=== PATIENT | male | born 1965 | race American Indian/Alaskan Native ===

== ENCOUNTER 2022-06-05 17:06 | Emergency (ER) | payer SELFPAY ==
--- NOTE | 2022-06-05 17:41 | Emergency Department Report ---
ED General Adult HPI - General Chief complaint: Arrhythmia/Palpitations Stated complaint: SVT Time Seen by Provider: 06/05/22 17:39 Source: patient, family, EMS (Verbal report received from emergency medical services. EMS documentation not available at time of chart dictation ), RN notes reviewed Mode of arrival: Stretcher Limitations: No Limitations - History of Present Illness Initial comments: The patient was evaluated in the emergency department for symptoms described in the history of present illness. He/she was evaluated in the context of the global COVID-19 pandemic, which necessitated consideration that the patient might be at risk for infection with the virus that causes COVID-19. Institutional protocols and algorithms that pertain to the evaluation of patients at risk for COVID-19 are in a state of rapid change based on informatio n released by regulatory bodies including the CDC and federal and state organizations. These policies and algorithms were followed during the patient's care in the emergency department. Please note that these policies, procedures and recommendations changed on a rapid basis. This is a 56-year-old gentleman who is medically healthy and denies chronic medical conditions. He presents to the ER today with an EMS articulated complaint of possible SVT, which is terminated with adenosine in the field. The patient reports that he recently retired from [employer], and is now working nights, graveyard shift, with security. He reports poor sleep hygiene, and disrupted sleep-wake cycle, sometimes sleeping only 4 hours at a time. He reports that he stood up today, to go to the bathroom, after eating, and he felt a sensation of painless heart racing. He reports that they called 911. EMS reports to myself that the patient had a regular narrow complex tachycardia, suspicious for SVT. EMS gave the patient 6 mg of adenosine, in the field, which terminated the patient's symptoms. The patient is a little anxious about this event, but otherwise, feels like he is back to his baseline. He currently denies physical pain. He denies travel, surgery, immobilization, DVT and pulmonary embolism extractors. He denies recreational drug use. He occasionally consumes coffee, but otherwise denies illicit drug use or alcohol consumption. He endorses readiness for discharge at this time -: Sudden Severity scale (0 -10): 0 Consistency: now resolved Improves with: medication Worsens with: none Associated Symptoms: denies other symptoms - Related Data Allergies Allergy/AdvReac Type Severity Reaction Status Date / Time No Known Allergies Allergy Unverified 06/05/22 17:36 ED Review of Systems ROS: Stated complaint: SVT Other details as noted in HPI Comment: All other systems reviewed and negative Cardiovascular: palpitations Psychiatric: anxiety ED Past Medical Hx - Past Medical History Hx Hypertension: Yes Hx Diabetes: Yes ED Physical Exam - General Limitations: No Limitations General appearance: alert, in no apparent distress - Head Head exam: Present: atraumatic, normocephalic - Eye Eye exam: Present: normal appearance, EOMI. Absent: nystagmus - ENT ENT exam: Present: normal exam, normal orophraynx, mucous membranes moist, normal external ear exam - Neck Neck exam: Present: normal inspection, full ROM. Absent: tenderness, meni ngismus - Respiratory Respiratory exam: Present: normal lung sounds bilaterally. Absent: respiratory distress, wheezes, rales, rhonchi, stridor, decreased breath sounds - Cardiovascular Cardiovascular Exam: Present: normal rhythm, bradycardia, normal heart sounds. Absent: tachycardia, irregular rhythm, systolic murmur, diastolic murmur, rubs, gallop - GI/Abdominal GI/Abdominal exam: Present: soft. Absent: distended, tenderness, guarding, rebound, rigid, pulsatile mass - Rectal Rectal exam: Present: deferred - Extremities Exam Extremities exam: Present: normal inspection, full ROM, other (2+ pulses noted in the bilateral upper and lower extremities. There is no palpable cord. negative Homans sign. Muscular compartments are soft. The pelvis is stable.). Absent: pedal edema, calf tenderness - Back Exam Back exam: Present: normal inspection, full ROM. Absent: tenderness, CVA tenderness (R), CVA tenderness (L), paraspinal tenderness, vertebral tenderness - Neurological Exam Neurological exam: Present: alert, oriented X3, normal gait, other (No facial droop. Tongue midline. Extraocular movements intact bilaterally. Facial sensation intact to light touch in V1, V2, V3 distribution bilaterally. 5 and a 5 strength in 4 extremities. Sensation intact to light touch in 4 extremities.). Absent: motor sensory deficit - Psychiatric Psychiatric exam: Present: anxious - Skin Skin exam: Present: warm, dry, intact, normal color. Absent: rash ED Course Vital Signs 06/05/22 06/05/22 06/05/22 17:28 17:51 17:55 Temperature 98.7 F Pulse Rate 83 82 73 Respiratory 18 22 18 Rate Blood Pressure Blood Pressure 175/119 165/105 [Left] O2 Sat by Pulse 100 98 100 Oximetry 06/05/22 06/05/22 06/05/22 17:58 18:00 18:16 Temperature Pulse Rate 74 67 Respiratory 19 24 Rate Blood Pressure 165/105 144/82 Blood Pressure [Left] O2 Sat by Pulse 100 98 98 Oximetry 06/05/22 06/05/22 06/05/22 18:30 18:46 19:00 Temperature Pulse Rate 65 62 62 Respiratory 21 23 18 Rate Blood Pressure 144/82 129/74 129/74 Blood Pressure [Left] O2 Sat by Pulse 98 97 97 Oximetry 06/05/22 06/05/22 06/05/22 19:16 19:30 19:46 Temperature Pulse Rate 60 65 62 Respiratory 20 16 25 H Rate Blood Pressure 133/83 133/83 144/91 Blood Pressure [Left] O2 Sat by Pulse 98 97 98 Oximetry 06/05/22 06/05/22 06/05/22 20:04 20:16 20:30 Temperature Pulse Rate 66 60 59 L Respiratory 19 20 21 Rate Blood Pressure 144/91 138/84 138/84 Blood Pressure [Left] O2 Sat by Pulse 97 98 98 Oximetry - Pulse Oximetry Interpretation Digit-Finger Initial Pulse Oximetry Readin O2 Sat by Pulse Oximetry: 96 Actions Taken: none ED Medical Decision Making - Lab Data Result diagrams: 06/05/22 18:08 06/05/22 18:08 Vital Signs 06/05/22 06/05/22 06/05/22 17:28 17:51 17:55 Temperature 98.7 F Pulse Rate 83 82 73 Respiratory 18 22 18 Rate Blood Pressure Blood Pressure 175/119 165/105 [Left] O2 Sat by Pulse 100 98 100 Oximetry 06/05/22 06/05/22 06/05/22 17:58 18:00 18:16 Temperature Pulse Rate 74 67 Respiratory 19 24 Rate Blood Pressure 165/105 144/82 Blood Pressure [Left] O2 Sat by Pulse 100 98 98 Oximetry 06/05/22 06/05/22 06/05/22 18:30 18:46 19:00 Temperature Pulse Rate 65 62 62 Respiratory 21 23 18 Rate Blood Pressure 144/82 129/74 129/74 Blood Pressure [Left] O2 Sat by Pulse 98 97 97 Oximetry 06/05/22 06/05/22 06/05/22 19:16 19:30 19:46 Temperature Pulse Rate 60 65 62 Respiratory 20 16 25 H Rate Blood Pressure 133/83 133/83 144/91 Blood Pressure [Left] O2 Sat by Pulse 98 97 98 Oximetry 06/05/22 06/05/22 06/05/22 20:04 20:16 20:30 Temperature Pulse Rate 66 60 59 L Respiratory 19 20 21 Rate Blood Pressure 144/91 138/84 138/84 Blood Pressure [Left] O2 Sat by Pulse 97 98 98 Oximetry Lab Results 06/05/22 06/05/22 06/05/22 Range/Units 18:08 18:08 18:08 WBC 9.2 (4.5-11.0) K/mm3 RBC 4.83 (3.65-5.03) M/mm3 Hgb 13.9 (11.8-15.2) gm/dl Hct 43.1 (35.5-45.6) % MCV 89 (84-94) fl MCH 29 (28-32) pg MCHC 32 (32-34) % RDW 14.4 (13.2-15.2) % Plt Count 352 (140-440) K/mm3 PT 12.1 L (12.2-14.9) Sec. INR 0.80 L (0.87-1.13) APTT 29.1 (24.2-36.6) Sec. Sodium 138 (137-145) mmol/L Potassium 4.3 (3.6-5.0) mmol/L Chloride 102.6 (98-107) mmol/L Carbon Dioxide 23 (22-30) mmol/L Anion Gap 17 mmol/L BUN 14 (9-20) mg/dL Creatinine 1.2 (0.8-1.3) mg/dL Estimated GFR > 60 ml/min BUN/Creatinine Ratio 12 % Glucose 270 H (75-100) mg/dL Calcium 9.0 (8.4-10.2) mg/dL Magnesium 1.90 (1.7-2.3) mg/dL Total Bilirubin 0.20 (0.1-1.2) mg/dL AST 17 (5-40) units/L ALT 23 (7-56) units/L Alkaline Phosphatase 73 (35-129) units/L Total Protein 7.2 (6.3-8.2) g/dL Albumin 4.2 (3.9-5) g/dL Albumin/Globulin Ratio 1.4 % TSH (0.270-4.200) mlU/mL Free T4 (0.76-1.46) ng/dL Plasma/Serum Alcohol (0-0.07) % 06/05/22 06/05/22 Range/Units 18:08 18:08 WBC (4.5-11.0) K/mm3 RBC (3.65-5.03) M/mm3 Hgb (11.8-15.2) gm/dl Hct (35.5-45.6) % MCV (84-94) fl MCH (28-32) pg MCHC (32-34) % RDW (13.2-15.2) % Plt Count (140-440) K/mm3 PT (12.2-14.9) Sec. INR (0.87-1.13) APTT (24.2-36.6) Sec. Sodium (137-145) mmol/L Potassium (3.6-5.0) mmol/L Chloride (98-107) mmol/L Carbon Dioxide (22-30) mmol/L Anion Gap mmol/L BUN (9-20) mg/dL Creatinine (0.8-1.3) mg/dL Estimated GFR ml/min BUN/Creatinine Ratio % Glucose (75-100) mg/dL Calcium (8.4-10.2) mg/dL Magnesium (1.7-2.3) mg/dL Total Bilirubin (0.1-1.2) mg/dL AST (5-40) units/L ALT (7-56) units/L Alkaline Phosphatase (35-129) units/L Total Protein (6.3-8.2) g/dL Albumin (3.9-5) g/dL Albumin/Globulin Ratio % TSH 2.890 (0.270-4.200) mlU/mL Free T4 0.93 (0.76-1.46) ng/dL Plasma/Serum Alcohol < 0.01 (0-0.07) % - EKG Data -: EKG Interpreted by De EKG shows normal: sinus rhythm Rate: normal - EKG Data 06/05/22 20:54 The emergency room EKG is interpreted at 18: 00 S sinus rhythm versus ectopic atrial rhythm. Question positively inverted P waves in aVR., 77 bpm. Normal axis, , left ventricular hypertrophy, and atrial enlargement. This is an abnormal EKG. This is not a STEMI. There are nonspecific T wave abnormalities. This is unchanged from prehospital EKG. Initial prehospital EKG shows a narrow complex regular tachycardia, with rate of 209 bpm. Normal axis, QTC 4 9 8 ms, high left ventricular voltage, not a STEMI - Medical Decision Making Differential diagnosis, including but not limited to: SVT, narrow complex tachycardia, disruption to sleep-wake cycle, electrolyte derangement, thyroid derangement Assessment and plan 56-year-old gentleman, who is not currently tachycardic, tachypneic or hypoxic, who denies DVT and pulmonary embolism risk factors, who is low risk by Wells criteria for pulmonary embolism, presenting with resolved narrow complex tachycardia, likely secondary to disruption in sleep-wake cycle. His laboratory studies are reviewed and are essentially nonactionable. He appears to be in a sinus or ectopic atrial rhythm at this time. He is hemodynamically stable, mild bradycardia asymptomatic. Recommend maintenance of normal sleep-wake cycle. we also recommend that the patient avoid alcohol, tobacco, smoke products and stimulants, as well as caffeinated substances. He articulates understanding. Contacted cardiology on- call, Dr. Karen Land Discussed the patient's history, physical, laboratory studies EKG, and clinical impression. He has also evaluated the patient's EKG. We agree with the aforementioned diet lifestyle modifications. Plan is to have patient follow-up with outpatient cardiology. Hold negative inotropes at this time, given asymptomatic bradycardia. All questions answered. Return precautions reviewed. Discussed findings with patient and significant other at the bedside, with patient's consent. On final reassessment, patient resting comfortably in stretcher, in no acute distress, endorsing readiness for discharge Critical care attestation.: If time is entered above; I have spent that time in minutes in the direct care of this critically ill patient, excluding procedure time. ED Disposition Clinical Impression: Narrow complex tachycardia Disposition: 01 HOME / SELF CARE / HOMELESS Is pt being admited?: No Does the pt Need Aspirin: No Condition: Stable Instructions: Supraventricular Tachycardia, Adult, [id number] Additional Instructions: We recommend that the patient get at least 8 hours of good quality uninterrupted sleep each day. 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 We also recommend that the patient avoid consumption of alcohol, tobacco, smoke products caffeine, energy drinks and stimulants. We recommend follow-up with an outpatient primary care doctor or environmental studies program director within the next week. Please see attached contact information for local providers. Exercise as tolerated. Avoid strenuous physical activity, participate in activities as tolerated. Please return to the emergency room right away with new pain, worsened pain, migration of pain, projectile vomiting, change in mental status, confusion, inability tolerate liquid feeds, new, worsened or different symptoms not present on the initial emergency room evaluation Referrals: MADELINE LAND MD [Referring] - 3-5 Days [facility] [Provider Group] - 3-5 Days [facility] [Provider Group] - 3-5 Days Forms: Work/School Release Form(ED)
[2022-06-05 19:07] LABS: Hematocrit 43.1 % (35.5-45.6); Hemoglobin 13.9 gm/dl (11.8-15.2); Mean Corpuscular HGB Conc 32 % (32-34); Mean Corpuscular Volume 89 fl (84-94); Platelet Count 352 K/mm3 (140-440); Red Blood Count 4.83 M/mm3 (3.65-5.03); Red Cell Distribution Width 14.4 % (13.2-15.2)
[2022-06-05 19:13] LABS: INR 0.8 (0.87-1.13)
[2022-06-05 19:14] LABS: Partial Thromboplastin Time 29.1 Sec. (24.2-36.6)
[2022-06-05 19:22] LABS: Alanine Aminotransferase 23 units/L (7-56); Albumin 4.2 g/dL (3.9-5); BUN/Creatinine Ratio 12; Blood Urea Nitrogen 14 mg/dL (9-20); Hemolysis Index 24
[2022-06-05 19:35] LABS: Free T4 (Free Thyroxine) 0.93 ng/dL (0.76-1.46)
[2022-06-05 20:33] VITALS: BP 138/84
--- NOTE | 2022-06-08 09:48 | Electrocardiograph Report ---
[facility] Test Date: 2022-06-05 Test Time: 17:49:50 Pat Name: HENRIQUE PINTO Department: Room: Gender: M [place]ogs[place] Filler: ER : 1965 Requested By: KRISTY SHARP Order Number: [id number] Reading MD: Nikunj Giles Measurements Intervals [place] Rate: 77 P: 134 HI: 130 QRS: 23 QRSD: 78 T: 235 QT: 379 QTc: 428 Interpretive Statements Sinus rhythm Left atrial enlargement Nonspecific T abnormalities, inferior leads No previous ECG available for comparison Electronically Signed On 06-08-2022 9:48:04 EDT by Nikunj Giles
== END 2022-06-05 21:20 | disposition home or self-care (01) ==
LOC: ED 17:06
DX: R00.0 Tachycardia, unspecified (principal); I10 Essential (primary) hypertension; E11.9 Type 2 diabetes mellitus without complications
CPT/HCPCS: 36415; 80053; 80320; 83735; 84439; 84443; 85027; 85610; 85730; 93005; 99283; G0480